=== PATIENT | female | born 1990 | race Caucasian/White ===

== ENCOUNTER 2021-04-13 20:42 | Emergency (ER) | payer BC ==
[~2021-04-13] VITALS: Ht 170.2 cm; Wt 154.9 kg
[2021-04-13] MEDS ORDERED: KETOROLAC 30 MG/ML 1ML VIAL IV ONE (21:35)
[2021-04-13 22:25] LABS: BASO % 0.3 % (0.0-1.0); EOS % 0.3 % (0.0-3.0); HEMATOCRIT 36.4 % (36.0-47.0); HEMOGLOBIN 11.8 g/dl (12.0-15.5); LYMPH # 3.4 10^3/uL (1.5-5.0); LYMPH % 33.5 % (24.0-44.0); MEAN CORPUSCULAR HEMOGLOBIN 26.5 pg (27.0-33.0); MEAN CORPUSCULAR HGB CONC 32.4 g/dl (32.0-36.5); MEAN CORPUSCULAR VOLUME 81.6 fl (80.0-96.0); MONO # 0.7 10^3/uL (0.0-0.8); MONO % 6.5 % (2.0-8.0); NEUTROPHILS % 59.1 % (36.0-66.0); PLATELET COUNT, AUTOMATED 379 10^3/uL (150-450); RED BLOOD COUNT 4.46 10^6/uL (4.00-5.40); WHITE BLOOD COUNT 10.1 10^3/uL (4.0-10.0)
[2021-04-13 22:48] LABS: ALT/SGPT 24 U/L (12-78); BILIRUBIN,DIRECT < 0.1 MG/DL (0.0-0.2); BILIRUBIN,TOTAL 0.3 MG/DL (0.2-1.0); LIPASE 62 U/L (73-393); TOTAL PROTEIN 7.1 GM/DL (6.4-8.2)
[2021-04-13] MEDS ORDERED: ISOVUE-370 76% 100ML VIAL As Ordered ONE (23:15)
[2021-04-14] MEDS ORDERED: CIPR-249 PO (00:22)
[2021-04-14] MEDS ORDERED: CIPROFLOXACIN 500MG TABLET PO ONE (00:25)
[2021-04-14 00:37] VITALS: BP 143/74
== END 2021-04-14 00:38 | disposition home or self-care (01) ==
LOC: M ED 20:42
DX: N30.90 Cystitis, unspecified without hematuria (principal); E28.2 Polycystic ovarian syndrome; E66.9 Obesity, unspecified
CPT/HCPCS: 74177; 80047; 80076; 81001; 83690; 84702; 85025; 87086; 96374; 99284; J1885; Q9967

== ENCOUNTER 2022-11-30 20:32 | Emergency (ER) | payer BC ==
[~2022-11-30] VITALS: Ht 170.2 cm; Wt 174.8 kg
[~2022-11-30 20:32] MED LIST: CIPR-249 PO
[2022-11-30] MEDS ORDERED: KETOROLAC TROMETHAMINE 10 MG TAB PO ONE (23:10)
[2022-12-01 01:36] VITALS: BP 140/75; TEMP 96.1; O2SAT 96
== END 2022-12-01 02:05 | disposition home or self-care (01) ==
LOC: M ED 20:32
DX: N83.201 Unspecified ovarian cyst, right side (principal); S93.402A Sprain of unspecified ligament of left ankle, initial encounter; W10.9XXA Fall (on) (from) unspecified stairs and steps, initial encounter; Z90.89 Acquired absence of other organs